=== PATIENT | female | born 1980 | race Two or more races ===

== ENCOUNTER 2017-10-30 20:02 | Emergency (ER) | payer OTHER ==
--- NOTE | 2017-10-30 20:08 | PDOC ---
Rapid Medical Evaluation Medical Evaluation: Allergies Allergy/AdvReac Type Severity Reaction Status Date / Time shellfish derived Allergy Intermediate Hives Verified 10/20/16 16:22 10/30/17 20:06 I have performed a brief in-person evaluation of this patient. The patient presents with a chief complaint of: fever, body aches, dry cough x3 weeks Pertinent physical exam findings: HEENT: Tonsillar erythema and exudate noted. No cervical lymphadenopathy. PULM: Lungs CTAB I have ordered the following: influenza, rapid strep The patient will proceed to the ED for further evaluation. Discharge Disposition - Diagnosis Cough - Referrals - Patient Instructions - Post Discharge Activity
[2017-10-30 20:13] VITALS: BP 132/85; TEMP 99.4; BMI 25.0
--- NOTE | 2017-10-30 20:27 | PDOC ---
History of Present Illness - General Chief Complaint: Cold Symptoms Stated Complaint: COLD SYMPTOMS Time Seen by Provider: 10/30/17 20:08 History Source: Patient - History of Present Illness Timing/Duration: reports: other Associated Symptoms: reports: fever/chills, sore throat. denies: chest pain/ soreness, cough, earache, facial pain, headache, shortness of breath, wheezing Past History - Past Medical History Allergies/Adverse Reactions: Allergies Allergy/AdvReac Type Severity Reaction Status Date / Time shellfish derived Allergy Intermediate Hives Verified 10/30/17 20:10 Home Medications: Ambulatory Orders NK [No Known Home Medication] 10/30/17 Asthma: No Cancer: No Cardiac Disorders: No COPD: No Diabetes: No HTN: No Seizures: No Thyroid Disease: No - Suicide/Smoking/Psychosocial Hx Smoking History: Current every day smoker Have you smoked in the past 12 months: No Number of Cigarettes Smoked Daily: 5 Information on smoking cessation initiated: No Hx Alcohol Use: No Drug/Substance Use Hx: No Substance Use Type: None Hx Substance Use Treatment: No Review of Systems - Review of Systems Constitutional: Yes: Fever, Malaise HEENTM: Yes: Throat Pain. No: Ear Pain Respiratory: No: Cough, Shortness of Breath *Physical Exam - Vital Signs Last Vital Signs Temp Pulse Resp BP Pulse Ox 99.4 F 118 H 20 132/85 99 10/30/17 20:10 10/30/17 20:10 10/30/17 20:10 10/30/17 20:10 10/30/17 20:10 - Physical Exam General Appearance: Yes: Appropriately Dressed. No: Apparent Distress HEENT: positive: EOMI, CONCEPCI[place]N, Normal Voice, TMs Normal, Tonsillar Exudate. negative: Scleral Icterus (R), Scleral Icterus (L) Neck: positive: Supple. negative: Lymphadenopathy (R), Lymphadenopathy (L) Respiratory/Chest: positive: Lungs Clear, Normal Breath Sounds. negative: Respiratory Distress Cardiovascular: positive: S1, S2, Tachycardia Integumentary: positive: Dry, Warm Neurologic: positive: Fully Oriented, Alert, Normal Mood/Affect Medical Decision Making - Medical Decision Making 10/30/17 20:17 Review 7-year-old female, no significant history here with body aches with dry cough, sore throat and fever 3 weeks that resolved but started again 2 days ago. No sick contacts or recent travel. Patient has been taking Tylenol at home. Patient well-appearing ED with low-grade fever and tachycardia with minimal exudative lesions to oropharynx. Rapid strep and influenza sent from triage and pending 10/30/17 21:39 Strep and flu negative. Vitals improved. DC with supportive treatment *DC/Admit/Observation/Transfer Diagnosis at time of Disposition: URI (upper respiratory infection) Qualifiers: URI type: unspecified viral URI Qualified Code(s): J06.9 - Acute upper respiratory infection, unspecified - Discharge Dispostion Disposition: HOME Condition at time of disposition: Good - Referrals Referrals: Lillian Mathur MD [Primary Care Provider] - - Patient Instructions Printed Discharge Instructions: DI for Viral Upper Respiratory Infection -- Adult - Post Discharge Activity Forms/Work/School Notes: Back to Work
[2017-10-30 21:42] VITALS: PULSE 90
== END 2017-10-30 21:42 | disposition home or self-care (01) ==
LOC: JERFT 20:02
DX: B97.89 Other viral agents as the cause of diseases classified elsewhere (principal); F17.210 Nicotine dependence, cigarettes, uncomplicated
CPT/HCPCS: 87070; 87430; 87804; 99281-25

== ENCOUNTER 2018-02-05 15:02 | Emergency (ER) | payer OTHER ==
[2018-02-05] MEDS ORDERED: IBUPROFEN 600 MG TABLET (FP) PO ONE (15:10)
--- NOTE | 2018-02-05 15:10 | PDOC ---
Rapid Medical Evaluation Time Seen by Provider: 02/05/18 15:05 Medical Evaluation: Allergies Allergy/AdvReac Type Severity Reaction Status Date / Time shellfish derived Allergy Intermediate Hives Verified 10/30/17 20:10 02/05/18 15:05 I have performed a brief in-person evaluation of this patient. The patient presents with a chief complaint of: body hurts, cough, runny nose, SOB x 2 days, denies v/d, unsure if had fever, has taken Mucinex w/o relief Pertinent physical exam findings: rhinorrhea, +dry cough, lungs ctab I have ordered the following: flu, motrin The patient will proceed to the ED for further evaluation. Discharge Disposition - Diagnosis Cough - Referrals - Patient Instructions - Post Discharge Activity
[2018-02-05 15:24] VITALS: BP 130/90; PULSE 130; BMI 25.7
[2018-02-05] MEDS ORDERED: ACETAMINOPHEN 325 MG TABLET (FP) PO ONE (16:18)
--- NOTE | 2018-02-05 16:18 | PDOC ---
History of Present Illness - General History Source: Patient Exam Limitations: No Limitations - History of Present Illness Initial Comments: 02/05/18 16:51 The patient is a 38 year old female with no known past medical history presents to the emergency department complaining of Flu like symptoms. The patient reports shes been not feeling well for the past two days with symptoms of body ache, rhinorrhea, dizziness, congested nose and cough with phlegm. The patient reports subjective fever which start today morning. The patient reports her was sick last week with similar symptoms and reports hes better now. The patient reports having a meal in the morning but denies eating anything else throughout the day. The patient denies chest pain, shortness of breath, headache. Denies chills, nausea, vomit, diarrhea and constipation. Denies dysuria, frequency, urgency and hematuria. Allergies: Shellfish PCP: Dr. Lillian Mathur Social History: Patient reports the use of cigarettes. Denies any use of alcohol or recreational drugs. Last menses: early January. <Reema Craft - Last Filed: 02/05/18 16:50> <Hattie Bolton - Last Filed: 02/05/18 17:32> - General Chief Complaint: Cold Symptoms Stated Complaint: CONGESTION, BODY ACHE Time Seen by Provider: 02/05/18 15:05 Past History <Reema Craft - Last Filed: 02/05/18 16:50> - Past Medical History Asthma: No Cancer: No Cardiac Disorders: No COPD: No Diabetes: No HTN: No Seizures: No Thyroid Disease: No - Suicide/Smoking/Psychosocial Hx Smoking History: Current every day smoker Have you smoked in the past 12 months: Yes Number of Cigarettes Smoked Daily: 5 Information on smoking cessation initiated: No Hx Alcohol Use: No Drug/Substance Use Hx: No Substance Use Type: Alcohol Hx Substance Use Treatment: No <Hattie Bolton - Last Filed: 02/05/18 17:32> - Past Medical History Allergies/Adverse Reactions: Allergies Allergy/AdvReac Type Severity Reaction Status Date / Time shellfish derived Allergy Intermediate Hives Verified 02/05/18 15:18 Home Medications: Ambulatory Orders Benzonatate [Tessalon Pearls -] 100 mg PO TID PRN #21 capsule 02/05/18 Fluticasone Prop 0.05% Nasal [Flonase -] 1 - 2 spray NS BID #1 spray.pump Review of Systems - Review of Systems Able to Perform ROS?: Yes Comments:: 02/05/18 16:51 GENERAL/CONSTITUTIONAL: (+)fever and feels tired all the time. No chills. No weakness. HEAD, EYES, EARS, NOSE AND THROAT: (+) runny nose w/ congestion. No change in vision. No ear pain or discharge. No sore throat. CARDIOVASCULAR: No chest pain or shortness of breath. RESPIRATORY: (+) cough w/ occasional phlegm. No wheezing, or hemoptysis. GASTROINTESTINAL: No nausea, vomiting, diarrhea or constipation. GENITOURINARY: No dysuria, frequency, or change in urination. MUSCULOSKELETAL: (+) body ache SKIN: No rash NEUROLOGIC: (+) dizzy. No headache, loss of consciousness, or change in strength /sensation. ENDOCRINE: No increased thirst. No abnormal weight change. HEMATOLOGIC/LYMPHATIC: No anemia, easy bleeding, or history of blood clots. ALLERGIC/IMMUNOLOGIC: No hives or skin allergy. <Reema Craft - Last Filed: 02/05/18 16:50> *Physical Exam - Vital Signs Last Vital Signs Temp Pulse Resp BP Pulse Ox 101.1 F H 130 H 18 130/90 97 02/05/18 16:35 02/05/18 15:18 02/05/18 15:18 02/05/18 15:18 02/05/18 15:18 - Physical Exam Comments: 02/05/18 16:51 GENERAL: Awake, alert, and fully oriented, in no acute distress HEAD: No signs of trauma EYES: PERRLA, EOMI, sclera anicteric, conjunctiva clear ENT: Posterior pharns clear. Auricles normal inspection, hearing grossly normal , nares patent, oropharynx clear without exudates. Moist mucosa NECK: no meningeal signs. Normal ROM, supple, no lymphadenopathy, JVD, or masses LUNGS: Breath sounds equal, clear to auscultation bilaterally. No wheezes, and no crackles HEART: (+) Tachycardia. normal S1 and S2, no murmurs, rubs or gallops ABDOMEN: Soft, nontender, normoactive bowel sounds. No guarding, no rebound. No masses EXTREMITIES: Normal range of motion, no edema. No clubbing or cyanosis. No cords, erythema, or tenderness NEUROLOGICAL: Cranial nerves II through XII grossly intact. Normal speech. SKIN: Warm to touch, Dry, normal turgor, no rashes or lesions noted. <Reema Craft - Last Filed: 02/05/18 16:50> - Vital Signs Last Vital Signs Temp Pulse Resp BP Pulse Ox 102.1 F H 130 H 18 130/90 97 02/05/18 15:18 02/05/18 15:18 02/05/18 15:18 02/05/18 15:18 02/05/18 15:18 <Hattie Bolton - Last Filed: 02/05/18 17:32> ED Treatment Course - ADDITIONAL ORDERS Additional order review: 02/05/18 15:10 Influenza Types A,B Antigen (JOSE) - Final Nasopharyngeal Swab - Final - Medications Given in the ED: ED Medications Discontinued Medications Generic Name Dose Route Start Last Admin Trade Name Freq PRN Reason Stop Dose Admin Acetaminophen 975 mg 02/05/18 16:18 02/05/18 16:49 Tylenol - PO 02/05/18 16:19 975 mg ONCE ONE Administration Ibuprofen 600 mg 02/05/18 15:10 02/05/18 15:11 Motrin - PO 02/05/18 15:11 600 mg ONCE ONE Administration <Reema Craft - Last Filed: 02/05/18 16:50> - Medications Given in the ED: ED Medications Discontinued Medications Generic Name Dose Route Start Last Admin Trade Name Freq PRN Reason Stop Dose Admin Ibuprofen 600 mg 02/05/18 15:10 02/05/18 15:11 Motrin - PO 02/05/18 15:11 600 mg ONCE ONE Administration <Hattie Bolton - Last Filed: 02/05/18 17:32> Medical Decision Making - Medical Decision Making 02/05/18 16:19 a/p: 38yo female with fever today, nasal congestion, sore throat, body aches -no meningeal signs -febrile in the ED -recent sick contact with a who had similar symptoms last week -2 days of symptoms -dry cough, lungs cta -will check for flu -suspect flu vs flu-like syndrome -will give tylenol/motrin for fever -last menstrual cycle 3 weeks ago -nontoxic in appearance -po challenge 02/05/18 17:28 flu swab negative re-eval: pt states feeling much better will give rx for flonase and tessalon perls to help with the nasal congestion and cough most likely flu-like illness kids were sick with similar 2 weeks ago, then her , now her stable for d/c to home recommended follow up with her PMD in 2 days. answered all questions <Hattie Bolton - Last Filed: 02/05/18 17:32> *DC/Admit/Observation/Transfer - Attestations Scribe Attestion: 02/05/18 16:52 Documentation prepared by Reema Craft, acting as medical staff services manager for Hattie Bolton DO. <Reema Craft - Last Filed: 02/05/18 16:50> - Discharge Dispostion Admit: No - Attestations Physician Attestion: 02/05/18 17:32 I, Dr. Hattie Bolton DO, attest that this document has been prepared under my direction and personally reviewed by me in its entirety. I further attest, that it accurately reflects all work, treatment, procedures and medical decision -making performed by me. <Hattie Bolton - Last Filed: 02/05/18 17:32> Diagnosis at time of Disposition: Cough, Flu-like symptoms - Discharge Dispostion Disposition: HOME Condition at time of disposition: Stable - Prescriptions Prescriptions: Benzonatate [Tessalon Pearls -] 100 mg PO TID PRN #21 capsule PRN Reason: Cough Fluticasone Prop 0.05% Nasal [Flonase -] 1 - 2 spray NS BID #1 spray.pump - Referrals Referrals: Lillian Mathur MD [Primary Care Provider] - - Patient Instructions Printed Discharge Instructions: DI for Viral Upper Respiratory Infection -- Adult Additional Instructions: Please take tylenol or motrin for the fever. Please use the nasal spray for the nasal congestion. Please take the cough medicine as needed. Please call your PMD tomorrow to schedule a follow up in 2 days. Please return to the ED with any further concerns or complaints. - Post Discharge Activity
[2018-02-05] MEDS ORDERED: ACETAMINOPHEN 325 MG TABLET (FP) ONE (16:45)
[2018-02-05 16:50] VITALS: TEMP 101.1
== END 2018-02-05 17:43 | disposition home or self-care (01) ==
LOC: JER 15:02
DX: J10.1 Influenza due to other identified influenza virus with other respiratory manifestations (principal); F17.210 Nicotine dependence, cigarettes, uncomplicated
CPT/HCPCS: 87804; 99281-25

== ENCOUNTER 2019-03-18 05:27 | Day surgery (SDC) | payer OTHER | END 2019-03-18 15:35 | disposition home or self-care (01) | LOC: JASU-SURG 05:27 ==